=== PATIENT | female | born 1965 | race Caucasian/White ===

== ENCOUNTER → 2016-06-23 | Outpatient (CLI) | payer OTHER ==
[~2016-06-23] MED LIST: AMITRYPTYLINE PO; AMOXICILLIN875 MG PO; BENTYL10 M1 PO; CATAFLAM50 MG PO; CLEOCIN HCL300 M1; FLEXERIL PO; FLEXERIL10 MG PO; FLONASE16 GM; GLUCOPHAGE500 M1 PO; HYDROCODON-ACE1 EACH PO; LISINOPRIL PO; METFORMIN PO; NAPROSYN500 MG PO; NEURONTIN PO; NEXIUM PO; NORCO 10-325 TA1 TAB PO; NOT SURE OF MEDS; OMEPRAZOLE40 M1 PO; ORUDIS75 M1 DOB; PRAVACHOL PO; PREDNISONE10 MG PO; PRILOSEC20 M1 PO; ULTRAM PO; ZOFRANODT PO; ZOLOFT PO; ZYRTEC PO
--- NOTE | ~2016-06-23 | CR93 ---
[facility] A Service [facility] RADIOLOGY TEXT RESULTS PATIENT: MARGARITA GARRISON LOCATION: [facility] : 65 UNIT #: [id number] AGE: [address]: Nathalie Patterson SEX: F ORDER DR: [id number] [place] [id number] MR#: [id number] Acc #: [id number] NAME: MARGARITA GARRISON : 1965 SEX: F STUDY DATE/TIME: 06/23/2016 13:51 UNIT: [facility] ROOM: STUDY DESCRIPTION: CR Elbow Min 3 Views Lt Attending Physician: Nathalie Patterson A.P.R.N. Referring Physician: Nathalie Patterson A.P.R.N. Ordering Physician: Nathalie Patterson A.P.R.N. Primary Care Physician: Escobar Elizabeth M.D. MEDICAL IMAGING REPORT This report is preliminary unless electronic signature is present. EXAM Left elbow, 06/23/2016. HISTORY Elbow pain in a 50-year-old female. Symptoms a couple of months. No known injury. TECHNIQUE 3 views of the elbow were performed. There are no comparisons. FINDINGS The examination is negative. There is some mild enthesopathic change of the medial and lateral epicondyles, but no acute fracture or joint effusion is present. Soft tissues are unremarkable. 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 Dictated by... Scooby Fernandez M.D. THIS IS AN ELECTRONICALLY VERIFIED REPORT Scooby Fernandez M.D. at 06/24/2016 10:31 PM Angel TD: 06/23/2016 17:41 JOB #: [id number] [facility] A Service [facility] RADIOLOGY TEXT RESULTS PATIENT: MARGARITA GARRISON LOCATION: [facility] : 65 UNIT #: [id number] AGE: [address]: Nathalie Patterson SEX: F ORDER DR: MEDICAL IMAGING REPORT Page 1 of 1
== END | disposition home or self-care (01) ==
LOC: SRAD 13:39
DX: M25.522 Pain in left elbow (principal)
CPT/HCPCS: 73080

== ENCOUNTER → 2016-07-01 | Outpatient (CLI) | payer OTHER ==
--- NOTE | ~2016-07-01 | MY11 ---
[facility] A Service [facility] RADIOLOGY TEXT RESULTS PATIENT: MARGARITA GARRISON LOCATION: [facility] : 65 UNIT #: [id number] AGE: [address]: Nathalie Patterson SEX: F ORDER DR: [id number] [place] [id number] MR#: [id number] Acc #: [id number] NAME: MARGARITA GARRISON : 1965 SEX: F STUDY DATE/TIME: 07/01/2016 10:57 UNIT: [facility] ROOM: STUDY DESCRIPTION: MY Mammogram Screening Dig Carl Attending Physician: Nathalie Patterson A.P.R.N. Ordering Physician: Nathalie Patterson A.P.R.N. Primary Care Physician: Escobar Elizabeth M.D. MEDICAL IMAGING REPORT This report is preliminary unless electronic signature is present. EXAM Digital screening mammogram 07/01/2016 HISTORY 50-year-old woman. Family history of ovarian cancer in maternal aunt. Annual screen. COMPARISON 11/08/2006, 11/21/2008, 08/05/2013, 11/14/2014. FINDINGS Digital imaging of each breast was completed utilizing screening protocol. Review includes FDA-approved CAD device. Breast parenchyma is partially fatty replaced. Subareolar duct prominence is noted bilaterally. Fibronodular appearance upper outer quadrants of each breast slightly dominant on the right. I see no suspicious mass characteristics and no interval occurring microcalcifications. There is no architectural deformity. IMPRESSION Benign mammogram. Annual screening recommended. Patient's over the age of 40 are entered into a reminder system with target due date for the next mammogram. BIRADS: 2 Benign findings Dictated by... Obey Abad M.D. [facility] A Service [facility] RADIOLOGY TEXT RESULTS PATIENT: MARGARITA GARRISON LOCATION: [facility] : 65 UNIT #: [id number] AGE: [address]: Nathalie Patterson SEX: F ORDER DR: THIS IS AN ELECTRONICALLY VERIFIED REPORT Obey Abad M.D. at 07/01/2016 2:59 PM WILBERT/vin TD: 07/01/2016 12:04 JOB #: [id number] MEDICAL IMAGING REPORT Page 1 of 1
== END | disposition home or self-care (01) ==
LOC: SMAM 07:54
DX: Z12.31 Encounter for screening mammogram for malignant neoplasm of breast (principal)
CPT/HCPCS: G0202